=== PATIENT | male | born 1975 | race Caucasian/White ===

== ENCOUNTER → 2024-01-30 11:54 | Outpatient (REF) | payer SELFPAY | LOC: HWRAD 11:54 | PROVIDERS: ATTENDING PHYSICIAN Preventive Medicine Public Health & General Preventive Medicine; REFERRING PHYSICIAN Nuclear Medicine Nuclear Cardiology | DX: E78.5 Hyperlipidemia, unspecified (principal) | CPT/HCPCS: 75571 ==

== ENCOUNTER → 2024-02-10 07:07 | Outpatient (REF) | payer BC, SELFPAY | LOC: HWRCS 07:07 | PROVIDERS: ATTENDING PHYSICIAN Nuclear Medicine Nuclear Cardiology; FAMILY PHYSICIAN Preventive Medicine Public Health & General Preventive Medicine | DX: E78.5 Hyperlipidemia, unspecified (principal); I25.10 Atherosclerotic heart disease of native coronary artery without angina pectoris; Z82.49 Family history of ischemic heart disease and other diseases of the circulatory system | CPT/HCPCS: 93306 ==

== ENCOUNTER → 2024-02-14 08:55 | Outpatient (REF) | payer BC, SELFPAY | LOC: RCS 08:55 | PROVIDERS: ATTENDING PHYSICIAN Nuclear Medicine Nuclear Cardiology; PRIMARYCARE PHYSICIAN Preventive Medicine Public Health & General Preventive Medicine | DX: E78.5 Hyperlipidemia, unspecified (principal); I25.10 Atherosclerotic heart disease of native coronary artery without angina pectoris; Z82.49 Family history of ischemic heart disease and other diseases of the circulatory system | CPT/HCPCS: 93017; 93350 ==

== ENCOUNTER 2024-09-18 06:26 | Day surgery (SDC) | payer BC, SELFPAY | END 2024-09-18 15:31 | disposition home or self-care (01) | LOC: GI 06:26 | PROVIDERS: ATTENDING PHYSICIAN Internal Medicine | DX: Z12.11 Encounter for screening for malignant neoplasm of colon (principal); K64.8 Other hemorrhoids; D12.2 Benign neoplasm of ascending colon; D12.3 Benign neoplasm of transverse colon; K63.5 Polyp of colon | CPT/HCPCS: 45380; 88305 ==